=== PATIENT | male | born 1950 | race Caucasian/White ===

== ENCOUNTER → 2016-10-10 | Outpatient (CLI) | payer OTHER ==
[~2016-10-10] MED LIST: AMIL5 PO; BENA20 PO; BROM5CAP PO; CARD240C6 PO; CARV12.52 PO; CHOL50006 PO; NORC10TA2 PO; RIVA20 PO; WALKER STANDARD
--- NOTE | 2016-10-12 12:43 | HM ---
Date Performed: 10/10/2016 Time Performed: 13:12:00 HOOKUP DATE: 10/10/16 01:12:00 PM Tue ANALYSIS START TIME: 10/10/2016 1:17:00 PM ANALYSIS END TIME: 10/11/2016 12:35:00 PM PATIENT AGE: 66 PATIENT HEIGHT PATIENT WEIGHT DRUG LIST PATIENT DIAGNOSIS: AFIB/PALPITATIONS TEST NARRATIVE: The patient's average heart rate was 84 BPM. Heart rates greater than 120 B PM were noted < 1% of the time. Heart rates less than 50 BPM were noted < 1% of the time. 25 babar ses exceeding 2.0 seconds were noted. The longest pause of 2.6 seconds occurred at 05:15:30 PM Tue. 42 ventricular ectopics, which represented < 1% of the total beat count, were noted. The highest ventricular ectopic frequency occurred from 12:00 AM to 01:00 AM Wed. During this time 5 VE(s) occu rred. Ventricular ectopics were observed as 40 isolated beat(s) and as 1 couplet(s). No runs were n oted. No supraventricular ectopics were noted. No episodes of ST depression (defined as -1.0 mm or more) were noted in channel 1. No episodes of ST depression (defined as -1.0 mm or more) were noted in channel 2. No episodes of ST depression (defined as -1.0 mm or more) were noted in channel 3. TEST INTERPRETATION: The patient is in atrial fibrillation throughout the recording. The averag e heart rate is 84 bpm. The minimum heart rate is 46 bpm at 9:31 PM and a peak heart rate of 138 bpm . There are 25 pauses between 2.0 and 2.6 seconds. There were no pauses longer than 2.6 seconds. T here were 40 PVCs and one ventricular couplet with no runs of ventricular tachycardia. Diary does no t report any symptoms. CONCLUSIONS: Atrial fibrillation throughout the recording with adequate rate c ontrol Frequent pauses but none longer than 2.6 seconds No cardiac symptoms were reported. Signed by : Merrill Lin
== END ==
LOC: HCAV 12:34
PROVIDERS: ATTEND Internal Medicine Interventional Cardiology
DX: I48.0 Paroxysmal atrial fibrillation (principal); I11.9 Hypertensive heart disease without heart failure; R00.2 Palpitations
CPT/HCPCS: 93225; 93226